=== PATIENT | male | born 1995 | race African-American/Black ===

== ENCOUNTER 2016-03-12 01:07 | Emergency (ER) | payer OTHER ==
[~2016-03-12] VITALS: Ht 180.3 cm; Wt 76.2 kg
--- NOTE | 2016-03-12 01:41 | ED AMS/SEIZURE/WEAK/DIZZY ---
History of Present Illness General Chief Complaint: ETOH/Drug Related Complaint Stated Complaint: BIBA ETOH Source: patient, EMS, police Exam Limitations: intoxication Vital Signs & Intake/Output Vital Signs & Intake/Output Vital Signs Date Time Temp Pulse Resp B/P Pulse O2 O2 Flow FiO2 Ox Delivery Rate 03/12 0640 98.7 70 18 124/68 99 Room Air 03/12 0135 98.9 56 18 113/57 98 Room Air Allergies Coded Allergies: NO KNOWN ALLERGIES (04/26/11) Triage Note: PT BIBA IN [employer] FOR ETOH. PT WAS FOUND UNRESPONSIVE IN HIS CAR WITH GIRLFRIEND. POLICE ATTEMPTED TO AROUSE BUT WAS UNABLE TOO. EMS ARRIVED, PT BECAME MORE RESPONSIVE AND PROJECTILE VOMITED ONTO HIMSELF. PT WAS MAKING THREATS TO EMS AND POLICE, STATING "I WILL KILL YOU" AND "NEXT TIME I SEE YOU YOU'LL NEED 12 STITCHES ALONZO". PT SOMEWHAT COOPERATIVE ON ARRIVAL, SLIGHTLY AGGRESSIVE. PT DENIES SI+HI. Triage Nurses Notes Reviewed? yes Onset: Abrupt Duration: minute(s): Timing: single episode today Injury Environment: home Severity: moderate Modifying Factors: Improves With: rest. Associated Symptoms: belligerence HPI: 20 yo gentleman was found slumped in car, lethargic and difficulty to arouse. 911 called. The medics were able to arouse him without narcan. He became belligerent, combative. Upon presentation to ED, he was somnolent, but easy to arouse. Past History Travel History Traveled to [place] past 21 day No Medical History Any Pertinent Medical History? see below for history Surgical History Surgical History: none Psychosocial History What is your primary language Occitan Family History Hx Contributory? No Review of Systems Review of Systems Constitutional: Reports: no symptoms. EENTM: Reports: no symptoms. Respiratory: Reports: no symptoms. Cardiovascular: Reports: no symptoms. GI: Reports: no symptoms. Genitourinary: Reports: no symptoms. Musculoskeletal: Reports: no symptoms. Skin: Reports: no symptoms. Neurological/Psychological: Reports: no symptoms. Hematologic/Endocrine: Reports: no symptoms. Immunologic/Allergic: Reports: no symptoms. All Other Systems: Reviewed and Negative Physical Exam Physical Exam General Appearance: well developed/nourished, no apparent distress, lethargic Head: atraumatic, normal appearance Eyes: Bilateral: normal appearance, PERRL, EOMI. Ears, Nose, Throat: normal pharynx, normal ENT inspection Neck: normal inspection, supple, full range of motion Respiratory: normal breath sounds, chest non-tender, no respiratory distress, quiet respiration, lungs clear Cardiovascular: regular rate/rhythm Gastrointestinal: normal bowel sounds, soft, non-tender, no organomegaly Back: normal inspection, normal range of motion Extremities: normal range of motion Neurologic/Psych: no motor/sensory deficits, awake, alert, oriented x 3 Skin: intact, normal color, warm/dry Core Measures ACS in differential dx? No CVA/TIA Diagnosis: No Severe Sepsis Present: No Septic Shock Present: No Progress Differential Diagnosis: alcohol intoxication, drug intoxication, electrolyte imbalance Plan of Care: Orders Procedure Date/time Status URINE DRUG SCREEN FOR ER ONLY 03/12 145 Complete ETHANOL 03/12 145 Complete COMPREHENSIVE METABOLIC PANEL 03/12 145 Complete CBC WITHOUT DIFFERENTIAL 03/12 145 Complete Laboratory Tests 03/12/16147: Serum Alcohol 213.0 03/12/16147: Anion Gap 20 H, Estimated GFR > 60, BUN/Creatinine Ratio 12.9, Glucose 82, Calcium 9.5, Total Bilirubin 1.9 H, AST 28, ALT 28, Alkaline Phosphatase 65, Total Protein 7.7, Albumin 4.8, Globulin 2.9, Albumin/Globulin Ratio 1.7, CBC w Diff NO MAN DIFF REQ, RBC 4.90, MCV 90.9, MCH 31.1 H, RDW 12.4, MPV 8.4, Gran % 65.3, Lymphocytes % 24.5, Monocytes % 6.9, Eosinophils % 2.8, Basophils % 0.5, Absolute Granulocytes 5.7, Absolute Lymphocytes 2.1, Absolute Monocytes 0.6, Absolute Eosinophils 0.2, Absolute Basophils 0, PUBS MCHC 34.2, Urine Opiates Screen < 100.00, Methadone Screen < 40, Barbiturate Screen < 60, Ur Phencyclidine Scrn < 6.00, Amphetamines Screen < 100, U Benzodiazepines Scrn < 85, Urine Cocaine Screen < 50, Urine Cannabis Screen > 80.00 H Initial ED EKG: none Departure Departure Disposition: HOME OR SELF CARE Condition: Stable Clinical Impression Primary Impression: Alcohol intoxication Secondary Impressions: Marijuana abuse Referrals: YOSELIN CASTRO,STEPHANY Crowley (PCP/Family) Departure Forms: Customer Survey General Discharge Information Comments 03/12/16, 6:42am... pt ambulated well... awake and alert.
[2016-03-12 02:08] LABS: ABSOLUTE BASOPHIL COUNT 0 /CUMM (0.0-0.2); ABSOLUTE EOSINOPHIL COUNT 0.2 /CUMM (0.0-0.7); ABSOLUTE GRANULOCYTE CT 5.7 /CUMM (1.4-6.5); ABSOLUTE LYMPH COUNT 2.1 /CUMM (1.2-3.4); ABSOLUTE MONOCYTE COUNT 0.6 /CUMM (0.10-0.60); BASOPHIL % 0.5 % (0.0-2.0); EOSINOPHIL % 2.8 % (0-5); GRANULOCYTE % 65.3 % (42.2-75.2); HEMATOCRIT 44.5 % (42-52); MEAN CORPUSCULAR HGB 31.1 PG (27.0-31.0); MEAN CORPUSCULAR HGB CONC 34.2 G/DL (33.0-37.0); MEAN CORPUSCULAR VOLUME 90.9 FL (80.0-94.0); MEAN PLATELET VOLUME 8.4 FL (7.4-10.4); PLATELET COUNT 258 /CUMM (130-400); RBC DISTRIBUTION WIDTH 12.4 % (11.5-14.5); WHITE BLOOD CELL COUNT 8.8 /CUMM (4.8-10.8)
[2016-03-12 06:40] VITALS: BP 124/68
== END 2016-03-12 06:43 ==
LOC: ERH 01:07
PROVIDERS: Pediatrics
DX: F10.129 Alcohol abuse with intoxication, unspecified (principal); F12.10 Cannabis abuse, uncomplicated
CPT/HCPCS: 80307; G0480